=== PATIENT | male | born 1935 | race Hispanic/Latino ===

== ENCOUNTER 2020-06-27 10:26 | Emergency (ER) | payer MEDICARE | END 2020-06-27 12:25 | disposition home or self-care (01) | LOC: EDH 10:26 | DX: S51.812A Laceration without foreign body of left forearm, initial encounter (principal); I10 Essential (primary) hypertension; Z87.891 Personal history of nicotine dependence; X58.XXXA Exposure to other specified factors, initial encounter; Y93.89 Activity, other specified; Y92.098 Other place in other non-institutional residence as the place of occurrence of the external cause; Y99.8 Other external cause status ==